=== PATIENT | male | born 1995 | race African-American/Black ===

== ENCOUNTER 2020-06-07 15:57 | Outpatient (REF) | payer BC, SELFPAY ==
[2020-06-10 07:12] LABS: SARS-CoV-2 Specimen Source Nasopharynx
[2020-06-10 07:43] LABS: SARS-CoV-2 RNA Detected (Undetected)
== END 2020-06-07 16:17 ==
LOC: NCHCN 15:57
PROVIDERS: Visit Provider Nurse Practitioner Family
DX: Z11.59 Encounter for screening for other viral diseases (principal)
CPT/HCPCS: U0003

== ENCOUNTER 2021-10-24 16:51 | Emergency (ER) | payer BC, SELFPAY ==
[2021-10-24 16:59] VITALS: BP 143/91; PULSE 85; RESP 18; TEMP 36.8; O2SAT 98
--- NOTE | 2021-10-24 17:00 | DI.RAD_ITS ---
Exam(s) XR WRIST RT COMPLETE EXAM: XR WRIST RT COMPLETE CLINICAL HISTORY: fall/pain TECHNIQUE: COMPARISON: No exams were available for comparison FINDINGS: Three views were obtained. There is a mildly displaced mildly comminuted fracture of the distal radi us. This probably involves the distal articular surface, note is also made of a mildly displaced uln ar styloid fracture. No additional fracture seen. IMPRESSION: RADIATION DOSE DELIVERED: Total DLP
--- NOTE | 2021-10-24 17:49 | DI.VRAD_ITS ---
PROCEDURE INFORMATION: Exam: XR Right Wrist Exam date and time: 10/24/2021 5:08 PM Age: 25 years old Clinical indication: Other: Fall/pain TECHNIQUE: Imaging protocol: XR Right wrist. Views: 3 or more views. COMPARISON: No relevant images were readily available for comparison purposes. FINDINGS: Bones/joints: Acute minimally displaced ulnar styloid fracture. Acute, comminuted, and mildly displaced intra-articular fracture of the distal radius. Soft tissues: Soft tissue swelling about the wrist. IMPRESSION: Acute distal radial and ulnar fractures. Dictated and Authenticated by: Michael Lowery MD. Ordering:ROMERO Hsu MD
[2021-10-24] MEDS: oxyCODONE 5 mg/Acetaminophen 325 mg TAB 1 TAB PO (17:54)
--- NOTE | 2021-10-24 18:33 | ED.GENADUL_ITS ---
Discharge Plan Disposition Patient Disposition: HOME Condition: Improving Discharge Details Clinical Impression: Radius and ulna distal fracture Primary Care Provider: Unknown,Unknown ED Provider: Shadi Hendrickson Home Meds and New Rx's Prescriptions: New oxycodone-acetaminophen [Percocet] 5-325 mg tablet 1 tab PO TID PRNQty: 8 0RF Discharge Instructions Instructions: Wrist Fracture in Adults (ED) Additional Instructions: X-ray reveals a fracture in your distal ulna and radius, you have been splinted appropriately. Rest, elevate, cool compresses every 2 hours for 20 minutes. [id number] Motrin as directed. Percocet as directed, remember this medication may cause drowsiness and/or constipation, you may want to take seny-vxi-tkoomqd stool softeners while on this medication. Please watch for new or worsening symptoms and return to the ER for any concerns. Lastly, I have placed you on the orthopedic list, please contact the orthopedic office on Wednesday for outpatient reevaluation, wear your splint until that appointment Referrals: Geoffrey Prater MD [ [facility] STAFF PHYSICIAN] - Medical Decision Making 25-year-old male presents to the ER, [id number], for evaluation of right wrist injury. A few hours ago he was snowboarding, fell forward landing on his hands. Reports the pain at that time was moderate to severe, worse with movement, did take Tylenol prior to arrival. He was wearing a helmet, denies striking his head or any other injuries. He does have diffuse discomfort and swelling but no obvious deformity. Plan is to obtain x-ray, get a single p.o. Percocet, and reassess. X-ray reveals an acute distal radial and ulnar fracture. Discussed x-ray findings with patient. Patient was splinted appropriately and placed on the orthopedic list. Standard discharge and return precautions were provided This documentation was generated using [employer] dictation system, please disregard any oddities of phrase or misspellings. Imaging Data Radiologic Study: Attestation: I personally reviewed and interpreted this imaging study as follows: Imaging: X-Ray Radiologist's impression: PROCEDURE INFORMATION: Exam: XR Right Wrist Exam date and time: 10/24/2021 5:08 PM Age: 25 years old Clinical indication: Other: Fall/pain TECHNIQUE: Imaging protocol: XR Right wrist. Views: 3 or more views. COMPARISON: No relevant images were readily available for comparison purposes. FINDINGS: Bones/joints: Acute minimally displaced ulnar styloid fracture. Acute, comminuted, and mildly displaced intra-articular fracture of the distal radius. Soft tissues: Soft tissue swelling about the wrist. IMPRESSION: Acute distal radial and ulnar fractures. HPI General Mode of arrival: ambulatory . Date/Time Provider Initiated Documentation: 10/24/21 17:07 . Limitations to Documentation: no limitations . Information obtained by: patient . History of Present Illness 25 year old M presents to the emergency department with the chief complaint of R wrist pain, described as moderate, with intensity rated at 7. Quality is described as aching, and is localized to the right and upper extremity. Patient reports no radiation. Patient started experiencing this hour(s) (3) and it has been constant. improves with Immobilization improves symptom(s), Movement worsens symptoms . Patient notes no other symptoms.. Patient did receive the following treatments prior to arrival, other (Tylenol) Related Data Home Medications Medication Instructions Recorded Confirmed oxycodone-acetaminophen 5 mg-325 1 tab PO TID PRN #8 tab 03/04/22 mg tablet (Percocet) Previous Rx's Medication Instructions Recorded oxycodone-acetaminophen 5 mg-325 1 tab PO TID PRN #8 tab 03/04/22 mg tablet (Percocet) General Stated Complaint: Orthopedic ISMA: 4 Review of Systems Constitutional Constitutional: Denies headache(s) and Denies weakness ENT Ears, Nose, Mouth, and Throat: Denies headache(s) and Denies neck pain Musculoskeletal Musculoskeletal: Denies deformity, Reports arthralgias, Denies neck pain, Denies numbness, Reports stiffness and Denies tingling Integumentary/Breasts Skin/Breast: Denies erythema Neurologic Neurologic: Denies headache(s), Denies numbness, Denies tingling and Denies weakness PFSH All Active Problems (Updated 10/24/21 @ 18:57 by BAUTISTA Montanez) Radius and ulna distal fracture (Acute) Social History Smoking/Tobacco Use Status: Never Smoking risk assessment performed?: Yes Alcohol Intake: current Alcohol Intake frequency: a few times a month Drug use: Occasionally Substance use type: marijuana Do you feel safe at home: Yes Do you feel safe in your relationship?: Yes Exam Const General: cooperative, healthy appearing, comfortable and no acute distress Orientation: alert and awake [facility] Head: normal to inspection, normocephalic and atraumatic Eyes General: appearance normal, both eyes and all related structures Conjunctivae: conjunctivae normal Neck Neck: normal visual inspection, full ROM, trachea midline, supple and nontender Resp Effort & Inspection: normal respiratory effort and able to speak in complete sentences Cardio Rate: regular rate Rhythm: regular rhythm Skin General skin exam: no rashes or lesions noted Neuro General: patient alert, patient awake, patient oriented x3, moves all extremities and no focal motor deficits Cognition: normal cognition Speech: speech normal Gait: normal gait Motor: muscle tone normal throughout Sensory Exam: no sensory deficits noted Extrem General: capillary refill normal Other: Right wrist neuro, vascular, tendon intact. Fingers and hand unremarkable. Normal capillary refill and radial pulse. Skin is intact. Wrist with diffuse range of motion secondary discomfort, pain is increased with movement. There is diffuse swelling and tenderness worse along the radial aspect. The distal forearm has diffuse mild discomfort but the rest of the forearm and elbow are unremarkable. Psych Appearance: grossly normal Mental Status: mental status grossly normal Course Vital Signs Vital signs: Vital Signs Temperature 36.8 C 10/24/21 16:59 Pulse 85 10/24/21 16:59 Respiratory Rate 18 10/24/21 16:59 Blood Pressure 143/91 H 10/24/21 16:59 Pulse Oximetry 98 10/24/21 16:59 Temperature 36.8 C 10/24/21 16:59 Temperature Source Tympanic 10/24/21 16:59 Pulse 85 10/24/21 16:59 Respiratory Rate 18 10/24/21 16:59 Respiratory Effort 10/24/21 17:02 Blood Pressure 143/91 H 10/24/21 16:59 Blood Pressure Position Supine 10/24/21 16:59 Pulse Oximetry 98 10/24/21 16:59 Oxygen Delivery Method Room Air 10/24/21 16:59 Oxygen Flow Rate 0 10/24/21 16:59 Pain Level 7 10/24/21 17:54 Procedures Orthopedic Splinting/Casting Injury #1: Side: right Upper Extremity Injury Location: wrist Upper Extremity Immobilizer: wrist splint (Ortho-Glass) Additional Comments: Neuro, vascular, tendon intact status post application as examined by me LANDEROSSS Have you Been Recently Intoxicated or Drunk Within the Last 30 days?: No Have you Ever Experienced Previous Episodes of Alcohol Withdrawal?: No Have you ever Experienced Withdrawal Seizures?: No Have you ever Experienced Delirium Tremens(DT)s?: No Have you ever undergone Alcohol Rehabilitation Treatment (i.e, inpt ot outpatient treatment programs)?: No Have you ever Experienced Blackouts?: No Have you ever Combined Alcohol with other Downers within the last 90 days?: No Have you ever Combined Alcohol with any other Substance of Abuse during the last 90 days?: No Positive Blood Alcohol level on Presentation? [PCS.BAL]: No Evidence of Increased Autonomic Activity (i.e. HR>120, tremor, sweating, agitation, nausea)?: No Result: 0
== END 2021-10-24 19:19 | disposition home or self-care (01) ==
PROVIDERS: Emergency Provider Physician Assistant
DX: S52.91XA Unspecified fracture of right forearm, initial encounter for closed fracture (principal); S52.691A Other fracture of lower end of right ulna, initial encounter for closed fracture; V00.311A Fall from snowboard, initial encounter
CPT/HCPCS: 29125; 99283; 73110

== ENCOUNTER 2021-10-28 14:33 | Day surgery (SDC) | payer BC, SELFPAY ==
[2021-10-28 08:44] LABS: Source Nasal/Nares
[2021-10-28 09:25] LABS: COVID-19 PCR Negative (Negative)
--- NOTE | 2021-10-28 14:43 | HPE_ITS ---
Assessment and Plan Assessment and plan (1) Closed fracture of right distal radius and ulna: Status: Acute Assessment and plan: Plan: He was screened by the nursing staff to have no symptoms or red flags for possible Covid-19 infection. Reviewed and discussed x-ray findings with patient in detail. Educated patient on surgery covering surgical technique, recovery process, benefits and risks in detail. After discussion patient gives verbal underst anding of risks and elects to proceed with scheduled surgery. Patient had opportunity to have questions answered to their satisfaction. Patient will continue to be scheduled for right closed reduction and casting of right wrist with Dr. Prater later today. History of Present Illness Narrative: Jono is a 25-year-old [id number] male presents to hospital for scheduled closed reduction and casting for right wrist fracture. Patient was snowboarding when he fell landing directly on both hands - causing injury to his right hand on Wednesday?10/24/2021. He tried to see if his symptoms would resolve at home before going to Urgent Care and then the ER. Patient went to the emergency room shortly after injury at which time x-rays revealed fracture of distal radius and ulna. After x-rays have been reviewed by orthopedic surgeon it was recommended he undergo closed reduction. Patient reports since being seen in the ER he has continued to wear splint. Describes discomfort along the wrist that he has been managing with ibuprofen 600 mg as well as oxycodone-acetaminophen every 8 hours. Denies numbness or tingling. Patient denies previous right wrist injury. Pertinent Surgical Information Denies past medical history of: Hypertension, stroke, cardiac issues, angina, asthma, COPD, sleep apnea, renal issues, liver issues, hepatitis, gastrointestinal issues, ulcers, hyperlipidemia, bleeding disorders, seizures, migraines, anxiety, depression, diabetes, autoimmune disorders, thyroid issues Denies prior complications from surgery or anesthesia. Review of Systems Cardiovascular Cardiovascular: Denies chest pain, Denies rapid heart rate, Denies irregular heart rhythm, Denies dyspnea, Denies dyspnea on exertion and Denies slow heart rate Respiratory Respiratory: Denies cough, Denies dyspnea, Denies dyspnea on exertion and Denies wheezing Gastrointestinal Gastrointestinal: Denies abdominal pain, Denies melena, Denies hematochezia, Denies constipation, Denies diarrhea, Denies nausea and Denies vomiting Genitourinary Genitourinary: Denies hematuria, Denies dysuria and Denies urinary urgency Musculoskeletal Musculoskeletal: Reports as per HPI, Denies numbness and Denies tingling Neurologic Neurologic: Denies numbness and Denies tingling Allergic/Immunologic Allergic/Immunologic: Denies wheezing PFSH All Active Problems (Updated 10/28/21 @ 14:46 by Janiya Gonzales) Closed fracture of right distal radius and ulna (Acute 10/24/21) Medical History (Updated 10/28/21 @ 14:46 by Janiya Gonzales) COVID-19 05/2020-symptomatic Surgical History (Updated 10/27/21 @ 11:39 by Henry Tovar) Hx of wisdom tooth extraction Social History Smoking/Tobacco Use Status: Never Smoking risk assessment performed?: Yes Alcohol Intake: current Alcohol Intake frequency: a few times a month Drug use: Daily Substance use type: marijuana Do you feel safe at home: Yes Do you feel safe in your relationship?: Yes Meds Allergies and Home Medications Allergies Allergy/AdvReac Type Severity Reaction Status Date / Time No Known Allergies Allergy Unverified 10/28/21 14:52 Home Medications Medication Instructions Recorded Confirmed Type oxycodone-acetaminophen 5 mg-325 1 tab PO TID PRN #8 tab 10/24/21 10/27/21 Rx mg tablet (Percocet) ibuprofen 200 mg tablet 200 mg PO DIRECTED 10/27/21 10/27/21 History Exam Const General: cooperative and no acute distress Resp Effort & Inspection: normal respiratory effort and able to speak in complete sentences Auscultation: clear to auscultation bilaterally, no rales, no rhonchi and no wheezes Cardio Heart Sounds: S1 normal, S2 normal and no murmurs Results Imaging Imaging Studies: Reviewed x-rays obtained from ER visit on 10/24/2021 of the right wrist which show mildly displaced comminuted transverse fracture of the distal radius with shortening and mildly displaced primarily oblique fracture of the ulnar styloid. No obvious signs of additional acute bony abnormality are noted. Labs Labs: Laboratory Results - last 24 hr 10/28/21 08:35 COVID-19 Source Nasal/Nares SARS-CoV-2 (PCR) Negative
[2021-10-28 14:57] VITALS: BP 113/67; PULSE 89; RESP 18; TEMP 36.5; O2SAT 97
--- NOTE | 2021-10-28 15:07 | W.ANESPRE ---
General Info Date of Service Date Performed: 10/28/21 Height: 5 ft 7 in Weight: 63.6 kg Body Mass Index (BMI): 21.9 Surgical Procedure: Operation Date: 10/28/21 17:25 Proposed Procedure Side Surgeon p Closed Reduction and Casting of Rt Wrist Right Geoffrey Prater MD Meds Allergies and Home Medications Allergies Allergy/AdvReac Type Severity Reaction Status Date / Time No Known Allergies Allergy Unverified 10/28/21 14:52 Home Medication Medication Instructions Recorded oxycodone-acetaminophen 5 mg-325 1 tab PO TID PRN #8 tab 10/24/21 mg tablet (Percocet) ibuprofen 200 mg tablet 200 mg PO DIRECTED 10/27/21 Current Visit Medications: Current Medications Generic Name Dose Route Start Last Admin Trade Name Freq PRN Reason Stop Dose Admin Ringer's Solution 1,000 mls @ 80 mls/hr 10/28/21 06:00 IV 11/20/21 23:59 INFUSION BERNARDO IV Miscellaneous Supplies 1 each 10/28/21 06:00 Iv Access IV 11/20/21 23:59 DIRECTED BERNARDO Sodium Chloride 0 ml 10/28/21 06:00 Normal Saline Flush 10 Ml Syr IV 11/20/21 23:59 PRN PRN Sodium Chloride 0 ml 10/28/21 06:00 Normal Saline 10 Ml Vial IJ 11/20/21 23:59 DIRECTED PRN Sterile Water 0 ml 10/28/21 06:00 Water,Injection,Sterile 10 Ml Vial IJ 11/20/21 23:59 DIRECTED PRN PFSH Active Problems Active Problems: Problem Status Onset Code Closed fracture of right distal radius and ulna 10/24/21 S52.501A, S52.601A Medical History Medical History COVID-19 05/2020-symptomatic Medical History Comments:: Vince last 10/28 729, jamir Surgical History Surgical History Hx of wisdom tooth extraction Tobacco Smoking/Tobacco Use Status: Never Alcohol Alcohol Intake: current Alcohol intake frequency: a few times a month Substance Use Substance use: Daily Substance use type: marijuana Vital Signs and Lab Results Vital Signs Most Recent Vital Signs in EMR: Most Recent Vital Signs Temp Pulse Resp BP Pulse Ox 36.5 C 89 18 113/67 97 10/28/21 14:57 10/28/21 14:57 10/28/21 14:57 10/28/21 14:57 10/28/21 14:57 Lab Results Blood Type / Crossmatch: No Data to Display Complete Blood Count: No Data to Display Complete Metabolic Panel: No Data to Display Liver Function Panel: No Data to Display Coagulation Panel: No Data to Display Cardiac Panel: No Data to Display Arterial Blood Gas: No Data to Display Venous Blood Gas: No Data to Display Pancreas Panel: No Data to Display Thyroid Panel: No Data to Display Infectious Disease: Coronavirus (COVID-19)(PCR) Negative (Negative) 10/28/21 08:35 10/28/21 Coronavirus 2019 Source Nasal/Nares 10/28/21 08:35 10/28/21 Blood Cultures: No Data to Display Toxicology Panel: No Data to Display Anesthesia Assessment and Plan Anesthesia History Personal History: No History of Anesthesia Complications Family History: No Family History of Anesthesia Complications Exercise Tolerance Exercise Tolerance: Metabolic Equivalents>4 Pertinent Negatives Pertinent Negatives: No Symptoms of GERD Cardiac & Pulmonary Exam Cardiac Exam: Normal S1/S2 Heart Sounds Pulmonary Exam: Clear Bilateral Breath Sounds Implantable Cardiac Device Does patient have a Pacemaker or an ICD?: No Airway Exam Known Difficult Airway: No Mallampati Class: 2 Mouth Opening: Normal (> 3cm) Thyromental Distance: Greater than 3 cm Neck Range of Motion: Full ROM Neck Circumference: Normal Teeth Condition: Normal Dentition ASA Classification ASA Score: ASA 2 Emergency Case?: No NPO Status NPO Status: NPO Clears >2 hours, Solids >8 hours Anesthesia Plan Resuscitation Status: Full Code Anesthesia Technique: General Anesthesia Airway Planned: Natural Airway Monitors Used: Standard Monitors
[2021-10-28 15:13] VITALS: BMI 21.9
--- NOTE | 2021-10-28 15:15 | DI.RAD_ITS ---
Exam(s) XR WRIST RT LIMITED EXAM: XR WRIST RT LIMITED CLINICAL HISTORY: CLOSED F RIGHT DISTAL RADIUS/ULNA. TECHNIQUE: 2D digital imaging was performed. COMPARISON: No exams were available for comparison FINDINGS: Fluoroscopy was provided during closed fracture reduction of the distal radius/ulna Total fluoroscopy time 6.8 seconds. Cumulative dose 0.1212mGy IMPRESSION: DATA REPOSITORY: RADIATION DOSE DELIVERED:
[2021-10-28] MEDS: Lactated Ringers 1,000 ML 80 ML IV (15:32)
[2021-10-28 16:20] VITALS: BP 116/63; PULSE 68; RESP 14; TEMP 36.5; O2SAT 95
--- NOTE | 2021-10-28 16:30 | W.ANESPOSTOP ---
Postoperative Evaluation Date, Time and Location Date Performed: 10/28/21 Time Performed: 16:30 Patient Location: Day Surgery Unit Vital Signs Most Recent Imported Vital Signs: Most Recent Vital Signs Temp Pulse Resp BP Pulse Ox 36.5 C 89 18 113/67 97 10/28/21 14:57 10/28/21 14:57 10/28/21 14:57 10/28/21 14:57 10/28/21 14:57 Pain Score Most Recent Pain Score: Most Recent Pain Score Pain Level 0 10/28/21 14:57 Assessment Mental Status: Arousable with meaningful communication Airway and Respiratory Function: Patent airway with normal (patient baseline) respiratory exam Cardiovascular Function: Hemodynamically Stable Hydration Status: Adequately Hydrated Nausea & Vomiting: No Nausea or Vomiting Pain: Pain is tolerable per patient Peripheral Nerve Block: Patient did not receive a nerve block
[2021-10-28 16:50] VITALS: BP 109/60; PULSE 74; RESP 16; TEMP 36.6; O2SAT 98
[2021-10-28 17:06] VITALS: BP 120/85; PULSE 60; RESP 16; TEMP 36.5; O2SAT 100
--- NOTE | 2021-10-28 21:47 | W.PM.OP ---
Date of service: 10/28/21 Time of Service: 15:50 Operative Note Operative Note DATE OF PROCEDURE: 10/29/21 PRE-OP DIAGNOSIS: Right Distal Radius and Ulna Fracture PROCEDURE: Closed Reducation and Casting of Right Distal Radius and Ulna Fracture SURGEON: Geoffrey Prater MATERIALS PLANNING MANAGER: Janiya Gonzales ANESTHESIA TYPE: General:No Airway Refer to Anesthesia Record ESTIMATED BLOOD LOSS: 0 COMPLICATIONS: None Patient was transported to: same day Patient's condition: stable Indications: Shadi is a 25-year-old who fell while snowboarding. He injured his right wrist with a distal radius and ulna fracture. He was noted to have some mild dorsal angulation. Given his hand dominance and his age I recommended a close reduction and casting. I reviewed this with him over the phone as well as today in person. He agrees to proceed with the procedure. I did review the risk of the procedure to include loss of reduction, need for repeat procedures, malunion, nonunion. Despite these risks, he elects to proceed. Findings: There is a dorsal angulated wrist fracture which was easily reduced with recreation of deformity, traction, and appropriate traction and reduction. The reduction was held with finger traps and the cast was applied. Procedure Description: Shadi was greeted in the preoperative holding area. His identity was confirmed the correct site was identified and marked. The consent was reviewed the patient and signed. History and physical was updated. He was taken back to the operating room. A timeout was performed for safe surgery. A general, an instrument airway, anesthetic was administered. A reduction maneuver was performed utilizing recreation of the deformity, traction, and appropriate manipulation. The arm was placed in finger traps to help hold the reduction and x-rays were utilized to confirm appropriate reduction of the fracture. The arm was then placed into a stockinette and wrapped with web roll. A fiberglass cast was applied and molded. X-rays utilized during this time to ensure that the reduction was maintained. Final x-rays were obtained which showed interval reduction of the distal radius fracture. He was taken back to the same-day surgery area in a stable condition.
== END 2021-10-28 17:40 | disposition home or self-care (01) ==
PROVIDERS: PCP Physician Assistant; Visit Provider Student in an Organized Health Care Education/Training Program
PROC: (CPT 25605; principal; 2021-10-28 17:15)
DX: S52.591A Other fractures of lower end of right radius, initial encounter for closed fracture (principal); S52.691A Other fracture of lower end of right ulna, initial encounter for closed fracture; W00.0XXA Fall on same level due to ice and snow, initial encounter; Y93.23 Activity, snow (alpine) (downhill) skiing, snowboarding, sledding, tobogganing and snow tubing; Z20.822 Contact with and (suspected) exposure to COVID-19
CPT/HCPCS: 25605; 87635; 73100; J1885; J2001; J2250; J2405; J2704

== ENCOUNTER 2021-11-10 15:20 | Outpatient (CLI) | payer BC, SELFPAY ==
--- NOTE | 2021-11-10 13:15 | DI.RAD_ITS ---
Exam(s) XR WRIST RT LIMITED EXAM: XR WRIST RT LIMITED CLINICAL HISTORY: closted distal radius and ulna fractures. TECHNIQUE: 2D digital imaging was performed. COMPARISON: Prior x-rays 10/24/2021 FINDINGS: Two views AP and lateral views again reveal nondisplaced fracture of the distal radius. There has been some he aling. Fracture line faintly visible but less so than previous. Mildly displaced fracture of the ul willy styloid noted with some increased displacement at this level when compared to previous. Scaphoid bone is intact and the scapholunate distance is normal. No carpal dislocation. No degenerative tessa nges. No radiopaque foreign body IMPRESSION: Healing distal radius fracture. No significant displacement nor angulation. However, the ulnar styl oid fracture is slightly more displaced than previous. DATA REPOSITORY: RADIATION DOSE DELIVERED:
== END 2021-11-10 15:21 | disposition home or self-care (01) ==
LOC: DIORS 15:20
PROVIDERS: PCP Physician Assistant; Visit Provider Physician Assistant
DX: S52.611A Displaced fracture of right ulna styloid process, initial encounter for closed fracture (principal); S52.591A Other fractures of lower end of right radius, initial encounter for closed fracture; W00.0XXA Fall on same level due to ice and snow, initial encounter
CPT/HCPCS: 73100

== ENCOUNTER 2021-12-08 14:05 | Outpatient (CLI) | payer BC, SELFPAY ==
--- NOTE | 2021-12-08 13:45 | DI.RAD_ITS ---
Exam(s) XR WRIST RT LIMITED EXAM: XR WRIST RT LIMITED INDICATION: right wrist fracture. COMPARISON: CR XR WRIST RT LIMITED from 11/10/2021 TECHNIQUE: 2D digital imaging was performed. Two views. FINDINGS: There has been no change in the alignment of nondisplaced fracture of distal radius and ulnar styloid fracture. No new abnormalities. DATA REPOSITORY: RADIATION DOSE DELIVERED:
== END 2021-12-08 14:06 | disposition home or self-care (01) ==
LOC: DIORS 14:05
PROVIDERS: PCP Physician Assistant; Referring Provider Physician Assistant; Visit Provider Physician Assistant
DX: S52.591D Other fractures of lower end of right radius, subsequent encounter for closed fracture with routine healing (principal); S52.611D Displaced fracture of right ulna styloid process, subsequent encounter for closed fracture with routine healing; X58.XXXD Exposure to other specified factors, subsequent encounter
CPT/HCPCS: 73100

== ENCOUNTER 2022-01-12 08:35 | Outpatient (CLI) | payer BC, SELFPAY ==
--- NOTE | 2022-01-12 08:07 | DI.RAD_ITS ---
Exam(s) XR WRIST RT LIMITED EXAM: XR WRIST RT LIMITED INDICATION: follow up. COMPARISON: CR XR WRIST RT LIMITED from 12/08/2021 TECHNIQUE: 2D digital imaging was performed. Two views. FINDINGS: No change in alignment distal radial and ulnar styloid fractures. Further healing. DATA REPOSITORY: RADIATION DOSE DELIVERED:
== END 2022-01-12 08:36 | disposition home or self-care (01) ==
LOC: DIORS 08:35
PROVIDERS: PCP Physician Assistant; Referring Provider Physician Assistant; Visit Provider Physician Assistant Surgical
DX: S52.611D Displaced fracture of right ulna styloid process, subsequent encounter for closed fracture with routine healing (principal); S52.591D Other fractures of lower end of right radius, subsequent encounter for closed fracture with routine healing; X58.XXXD Exposure to other specified factors, subsequent encounter
CPT/HCPCS: 73100

== ENCOUNTER 2022-11-05 15:13 | Emergency (ER) | payer BC, SELFPAY ==
[2022-11-05] VITALS (40 sets, daily range): BP systolic 107–133; BP diastolic 60–98; PULSE 65–99; RESP 7–35; TEMP 36.6–37.5; O2SAT 87–100
--- NOTE | 2022-11-05 15:58 | ED.GENADUL_ITS ---
Discharge Plan Disposition Patient Disposition: Home Discharge Details Clinical Impression: Acute dehydration, Hypokalemia Primary Care Provider: [facility] ED Provider: Antonio Clarke Home Meds and New Rx's Prescriptions: Continued acetaminophen 500 mg tablet 500 mg PO Q6H PRN (Reason: pain) Qty: 60 2RF ibuprofen 600 mg tablet 600 mg PO TID PRN (Reason: pain) Qty: 60 0RF No Action hydrocodone-acetaminophen 5-325 mg tablet 1 tab PO Q6H PRN (Reason: severe pain) Qty: 6 0RF Rx Instructions: Take one tablet up to every 6 hours as needed for severe postoperative pain Discharge Instructions Instructions: Dehydration (ED), Hypokalemia (ED) Additional Instructions: Your potassium level was slightly low and supplemented in the emergency department. You would benefit from increased dietary potassium through foods such as bananas, strawberries, and tree nuts like cashews or almonds. Small, frequent sips of fluids to maintain hydration. May resume normal routine and activities tomorrow. Return to the ER for any acute concern. Medical Decision Making This is a 26-year-old male who presents with his boss. 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 He states he had to have a cup of coffee but no food today. Approximately 2 PM he felt weakness, lightheadedness, nausea and had 2 large-volume episodes of emesis. This is associated with tingling in his hands and a mild sense of doom. He did not have syncope and denies chest pain or palpitations. He arrives slightly improved. He is afebrile, blood pressure 115/98 with a pulse in the 90s. Differential diagnosis includes dehydration, hyperventilation syndrome, electrolyte abnormalities. Patient was placed on a cardiac monitor technician, IV access established, fluid bolus initiated. Orthostatic vital signs note likely intravascular volume depletion. Laboratories reveal a white count of 12, hematocrit 46, platelets 253. Sodium 137, potassium 3.1, chloride 99, bicarb 21, anion gap of 17, BUN 18, creatinine 1.1. Troponin is negative and LFTs show an AST of 21, ALT 18. Patient improving following fluids. He has received potassium supplementation. He is stable and appropriate for discharge to home. HPI General Mode of arrival: ambulatory . Date/Time Provider Initiated Documentation: 11/05/22 15:41 . Limitations to Documentation: no limitations . Information obtained by: patient . History of Present Illness 26 year old M presents to the emergency department with the chief complaint of Vomiting, tingling in hands, feels weak, described as moderate, Patient started expe riencing this hour(s) and it has been constant. No relieving factors improve symptom(s), No exacerbating factors reported . Patient notes loss of appetite, nausea/vomiting and weakness; denies fever/chills, headaches and syncope. Patient did receive the following treatments prior to arrival, none Related Data Home Medications Medication Instructions Recorded Confirmed acetaminophen 500 mg tablet 500 mg PO Q6H PRN pain #60 tabs 10/28/21 11/05/22 hydrocodone 5 mg-acetaminophen 325 1 tab PO Q6H PRN severe pain #6 10/28/21 11/05/22 mg tablet tabs ibuprofen 600 mg tablet 600 mg PO TID PRN pain #60 tabs 10/28/21 11/05/22 Previous Rx's Medication Instructions Recorded acetaminophen 500 mg tablet 500 mg PO Q6H PRN pain #60 tabs 10/28/21 hydrocodone 5 mg-acetaminophen 325 1 tab PO Q6H PRN severe pain #6 10/28/21 mg tablet tabs ibuprofen 600 mg tablet 600 mg PO TID PRN pain #60 tabs 10/28/21 Allergies Allergy/AdvReac Type Severity Reaction Status Date / Time No Known Allergies Allergy Verified 11/05/22 15:37 General Stated Complaint: Anxiety ISMA: 3 Review of Systems Narrative: 8 systems reviewed and otherwise negative PFSH All Active Problems (Updated 11/05/22 @ 18:27 by Antonio Clarke MD) Acute dehydration (Acute) Hypokalemia (Acute) Closed fracture of right distal radius and ulna (Acute 10/24/21) Medical History COVID-19 05/2020-symptomatic Surgical History Hx of wisdom tooth extraction Social History Smoking/Tobacco Use Status: Never Smoking risk assessment performed?: Yes Alcohol Intake: current Alcohol Intake frequency: a few times a month Drug use: Daily Substance use type: marijuana Do you feel safe at home: Yes Do you feel safe in your relationship?: Yes Exam Narrative Exam Narrative: GEN: awake, alert, oriented 3. Pleasant, well groomed, interactive. HEAD: Normocephalic, atraumatic ENT: Mucous membranes dry, oropharynx unremarkable, External ear exam unremarkable EYES: PERRL, EOMI NECK: Full ROM, no MORTEZA, no menigismus CHEST/RESP: Nontender, clear to auscultation bilateral, no wheeze/rhonchi/rales CARDIOVASCULAR: RRR, no murmur, rub chaz. 2+ Rad pulse bilateral ABDOMEN: Soft, nontender, no mass. +Bowel sounds EXT: Full ROM, no edema, no rash Neuro: Grossly normal neurologic exam, conversant, interactive. Psych: Speech fluent, thoughts congruent, affect normal Course Vital Signs Vital signs: Vital Signs Temperature 36.6 C 11/05/22 15:20 Pulse 92 H 11/05/22 15:20 Respiratory Rate 26 H 11/05/22 15:20 Blood Pressure 115/98 H 11/05/22 15:20 Pulse Oximetry 100 11/05/22 15:20 Temperature 36.6 C 11/05/22 15:20 Temperature Source Oral 11/05/22 15:20 Pulse 92 H 11/05/22 15:20 Respiratory Rate 18 11/05/22 15:33 Respiratory Effort Non-Labored, Short of Breath 11/05/22 15:33 Respiratory Depth Normal 11/05/22 15:33 Respiratory Pattern Normal 11/05/22 15:33 Blood Pressure 115/98 H 11/05/22 15:20 Blood Pressure Position Sitting 11/05/22 15:20 Pulse Oximetry 100 11/05/22 15:20 Oxygen Delivery Method Room Air 11/05/22 15:20 Oxygen Flow Rate 0 11/05/22 15:20 Pain Level 0 11/05/22 15:20 PAWSS Have you Been Recently Intoxicated or Drunk Within the Last 30 days?: No Have you Ever Experienced Previous Episodes of Alcohol Withdrawal?: No Have you ever Experienced Withdrawal Seizures?: No Have you ever Experienced Delirium Tremens(DT)s?: No Have you ever undergone Alcohol Rehabilitation Treatment (i.e, inpt ot outpatient treatment programs)?: No Have you ever Experienced Blackouts?: No Have you ever Combined Alcohol with other Downers within the last 90 days?: No Have you ever Combined Alcohol with any other Substance of Abuse during the last 90 days?: No Result: 0
[2022-11-05] MEDS: Normal Saline 1,000 ML 1000 ML IV ×2 (16:06→17:37)
[2022-11-05 16:08] LABS: Abs Immature Grans 0.06 10^3/uL (0.0-0.06); Absolute Basophil Count 0.05 10^3/uL (0.0-0.2); Absolute Eosinophil Count 0.03 10^3/uL (0.0-0.7); Absolute Lymphocyte Count 1.61 10^3/uL (1.2-3.4); Absolute Monocyte Count 0.46 10^3/uL (0.1-0.8); Absolute Neutrophil Count 10.54 10^3/uL (1.2-6.7); Basophils % 0.4; Eosinophils % 0.2; HGB 15.8 g/dL (13.5-17.5); Immature Grans % 0.5; Lymphocytes % 12.6; MCH 28.9 pg (27.0-33.0); MCHC 34.3 % (32.0-36.0); MCV 84 fL (80-95); Monocytes % 3.6; Neutrophils % 82.7; Platelet Count 253 10^3/uL (130-400); RBC 5.46 10^6/uL (4.36-5.78); RDW 12.9 % (11.8-14.1); RDW-SD 39.4 fL; WBC 12.75 10^3/uL (4.4-10.8)
[2022-11-05 16:34] LABS: ALT 18 U/L (16-63); AST 21 U/L (15-37); Albumin 4.9 g/dL (3.4-5.0); Alkaline Phosphatase 80 U/L (46-116); BUN 18 mg/dL (7-18); Bilirubin, Total 1.1 mg/dL (0.2-1.0); CREATININE 1.1 mg/dL (0.70-1.30); Calcium 9.7 mg/dL (8.5-10.1); Chloride 99 mmol/L (98-107); Estimated GFR 96.14 (mL/min/1.73m2); Glucose 90 mg/dL (74-106); Magnesium 1.9 mg/dL (1.8-2.4); Potassium 3.1 mmol/L (3.5-5.1); Sodium 137 mmol/L (136-145); Total Protein 9.2 g/dL (6.4-8.2); Troponin I < 50 ng/L (<or=60)
[2022-11-05] MEDS: Potassium Chloride 20 MEQ TABCR PO (16:45)
[2022-11-05] MEDS: POTASSIUM CHLORIDE 20 MEQ/100 ML BAG 50 MEQ IVPB (17:37)
[2022-11-05 17:49] LABS: Bilirubin Negative (Negative); Blood Negative (Negative); Clarity Clear (Clear); Glucose Negative (Negative); Ketones >=160 mg/dL (Negative); Leukocyte Esterase Negative (Negative); Nitrite Negative (Negative); Specific Gravity >= 1.030 (1.005-1.025); Urobilinogen 0.2 mg/dL (Up to 0.2); pH 5.5 (5-8)
== END 2022-11-05 19:35 | disposition home or self-care (01) ==
PROVIDERS: Emergency Provider Emergency Medicine; PCP Physician Assistant
DX: E86.0 Dehydration (principal); E87.6 Hypokalemia
CPT/HCPCS: 36415; 80053; 96361; 96365; 96366; 99284; 81003; 83735; 84484; 85025; J3480